=== PATIENT | male | born 1975 | race Caucasian/White ===

== ENCOUNTER 2017-05-17 21:22 | Emergency (ER) | payer BC ==
[~2017-05-17] VITALS: Ht 172.7 cm; Wt 114.8 kg
[~2017-05-17 21:22] MED LIST: ANUSOL-HC21 GM PR; BACTRIM,SEPT1 TABLET PO; CELEBREX200 MG PO; CLINDAMYCIN HC300 MG PO; Coumadin Protocol PO; DAILY VITAMIN1 EAC8 PO; FLEXERIL10 MG PO; FLONASE16 G1 BOTH NARES; Feosol PO; HYDROCHLOROTHIA25 MG PO; HYDROCODON-ACE1 EAC7 PO; Hydrodiuril,Oretic,E PO; INDOMETHACIN50 MG PO; KEFLEX500 MG PO; LORTAB 5-325 M1 EACH PO; NAPROSYN500 MG PO; ONE DAILY GUM200 MCG PO; Percocet 5/325,Endoc PO; Senokot S,Pericolace PO
[2017-05-18] MEDS ORDERED: FIORICET 50-301 EAC1 PO (01:28)
[2017-05-18] MEDS ORDERED: ZOFRAN ODT4 MG PO (01:28)
[2017-05-18 02:14] VITALS: BP 113/55
== END 2017-05-18 02:19 | disposition home or self-care (01) ==
LOC: EME 21:22
DX: S06.0X0A Concussion without loss of consciousness, initial encounter (principal); R20.2 Paresthesia of skin; W20.8XXA Other cause of strike by thrown, projected or falling object, initial encounter
CPT/HCPCS: 70450; 70486; 72050; 72125; 99281; 99284